=== PATIENT | male | born 2005 | race Hispanic/Latino ===

== ENCOUNTER 2023-11-28 11:32 | Emergency (ER) | payer BC ==
[~2023-11-28] VITALS: Ht 180.3 cm; Wt 85.7 kg
[2023-11-28] MEDS: IBUPROFEN 800 MG TAB PO ONE (11:49)
[2023-11-28 12:37] VITALS: BP 118/65; PULSE 78; RESP 18; O2SAT 99
[2023-11-28] MEDS ORDERED: IBUP-2077 PO (12:38)
== END 2023-11-28 12:49 | disposition home or self-care (01) ==
LOC: EDH 11:32
DX: S90.112A Contusion of left great toe without damage to nail, initial encounter (principal); W22.8XXA Striking against or struck by other objects, initial encounter; Y93.89 Activity, other specified; Y92.89 Other specified places as the place of occurrence of the external cause; Y99.8 Other external cause status
CPT/HCPCS: 73630